=== PATIENT | female | born 1995 | race Caucasian/White ===

== ENCOUNTER 2016-04-23 13:25 | Emergency (ER) | payer OTHER ==
[2016-04-23 14:34] VITALS: BP 115/59
--- NOTE | 2016-04-23 14:57 | UC ---
Eye Complaint HPI - HPI Summary HPI Summary: awoke for the past 2 days with crusty drainage from both eye, yesterday she tried a allergy med with out much relief---has glass on now but does have contact lens, no eye pain - History of Current Complaint Chief Complaint: UCEye Stated Complaint: BILATERAL EYE COMPLAINT Time Seen by Provider: 04/23/16 14:56 Hx Obtained From: Patient Hx Last Menstrual Period: 04/09/16 ?: No Onset/Duration: Sudden Onset, Lasting Days - 2, Still Present Severity Initially: Mild Severity Currently: Mild Pain Intensity: 4 Pain Scale Used: 0-10 Numeric Location of Injury: Conjunctiva - pink Aggravating Factor(s): Nothing Alleviating Factor(s): Nothing Associated Signs And Symptoms: Positive: Drainage (Purulent). Negative: Photophobia, Vision Impairment Bilateral, Vision Impairment Right, Vision Impairment Left, Fever, Swelling - Allergies/Home Medications Allergies/Adverse Reactions: Allergies Allergy/AdvReac Type Severity Reaction Status Date / Time No Known Allergies Allergy Verified 12/29/13 07:55 PMH/Surg Hx/FS Hx/Imm Hx Previously Healthy: No Respiratory History Of: Reports: Asthma - As a child - Surgical History Surgical History: Yes Surgery Procedure, Year, and Place: Tubes in ears, wisdom teeth removed - Family History Known Family History: Positive: None Family History: denies cardiovascular issues in family lineage - Social History Occupation: Student Lives: With Family Alcohol Use: None Substance Use Type: None Smoking Status (MU): Never Smoked Tobacco Review of Systems Constitutional: Negative Skin: Negative Eyes: Drainage - b/l, Eye Redness ENT: Negative Respiratory: Negative Cardiovascular: Negative Gastrointestinal: Negative Genitourinary: Negative Motor: Negative Neurovascular: Negative Musculoskeletal: Negative Neurological: Negative Psychological: Negative All Other Systems Reviewed And Are Negative: Yes Physical Exam Triage Information Reviewed: Yes Appearance: Well-Appearing, No Pain Distress, Well-Nourished Vital Signs: Initial Vital Signs Temp 99 F 04/23/16 14:29 Pulse 70 04/23/16 14:29 Resp 16 04/23/16 14:29 BP 115/59 04/23/16 14:29 Pulse Ox 100 04/23/16 14:29 Eye Exam: Normal, Other Eyes: Positive: Conjunctiva Inflamed, Discharge - clear now ENT Exam: Normal Dental Exam: Normal Neck exam: Normal Neck: Positive: 1 Respiratory Exam: Normal Cardiovascular Exam: Normal Abdominal Exam: Normal Musculoskeletal Exam: Normal Neurological Exam: Normal Psychological Exam: Normal Skin Exam: Normal Eye Complaint Course/Dx - Course Course Of Treatment: cipro opthalmic drops, no contacts until resolved follow with optho. if not rapidly improving - Differential Dx/Diagnosis Differential Diagnosis/HQI/PQRI: Conjunctivitis, Corneal Abrasion Provider Diagnoses: b/l conjuctivitis Discharge - Discharge Plan Condition: Stable Disposition: HOME Prescriptions: Ciprofloxacin 0.3% OPTH.ESTELA* [Cipro 0.3% Opth*] 1 drop BOTH EYES Q2H #1 btl Patient Education Materials: How to Use Eye Drops (ED), Conjunctivitis (ED) Forms: *School Release Referrals: Non Staff,Doctor [Primary Care Provider] - Additional Instructions: Follow up at [facility], [facility] drafter or return to urgent care should symptoms worsen or fail to improve
== END 2016-04-23 15:23 | disposition home or self-care (01) ==
LOC: UCCORT 13:25
DX: H10.33 Unspecified acute conjunctivitis, bilateral (principal)
CPT/HCPCS: 99202; G0463